=== PATIENT | male | born 1995 | race Caucasian/White ===

== ENCOUNTER 2017-01-20 18:46 | Emergency (ER) | payer OTHER ==
[~2017-01-20] VITALS: Ht 170.1 cm; Wt 77.1 kg
[~2017-01-20 18:46] MED LIST: ADVAIR 250/501 EA INH; ADVAIR 500/501 E1 INH; ADVAIR DISKUS 21 DSK IH; ALBUTEROL0.09 MG/A2 IH; ALBUTEROL2.5 MG/0.5 INH; CIPROFLOXACIN500 MG PO; CLARITIN10 MG; CLARITIN10 MG PO; CORDROL20 MG PO; CYCLOBENZAPRINE10 MG PO; DUONEB 3 MG/3 ML3 M1 INH; FLOVENT DI250 MCG/Ac IH; IBU800 MG PO; KEFLEX500 MG PO; LEVAQUIN500 M1 IV; Lovenox40 MG/0.4 SC; MEDROL DOSEPAK4 MG PO; NORCO 325 MG-51 TAB PO; PREDNICOT20 MG PO; PREDNISONE10 MG PO; PRILOSEC40 MG PO; PROTONIX40 MG PO; PROVENTIL0.09 MG/A1 IH; ROBITUSSIN AC 110 ML PO; SINGULAIR10 MG PO; SOLU-MEDROL40 MG IV; SYMBICORT 10.10.2 M1 IH; SYMBICORT1 AE1 IH; TRAMADOL HCL50 MG PO; ZITHROMAX Z PA250 MG PO; ZYRTEC10 M2 PO; ZYRTEC10 MG PO
[2017-01-20 20:20] LABS: BASO # 0.1 10*3/uL (0.0-0.1); BASO % 0.7 % (0.0-1.0); EOS # 0.7 10*3/uL (0.0-0.4); EOS % 6.5 % (1.0-4.0); HEMATOCRIT 42.7 % (42.0-52.0); HEMOGLOBIN 14.5 g/dl (14.0-18.0); LYMPH # 2.3 10*3/uL (1.3-4.4); LYMPH % 22.4 % (27.0-41.0); MEAN CELL VOLUME 81.6 fl (80.0-94.0); MEAN CORPUSCULAR HGB 27.7 pg (27.0-31.0); MEAN PLATELET VOLUME 9.7 fl (9.6-12.3); MONO # 0.6 10*3/uL (0.1-1.0); MONO % 5.3 % (3.0-9.0); NEUT # 6.7 10*3/uL (2.3-7.9); NEUT % 64.7 % (47.0-73.0); PLATELET COUNT AUTOMATED 255 10*3/uL (130-400); RED BLOOD COUNT 5.23 10*6/uL (4.50-5.90); RED CELL DISTRI WIDTH 12.4 % (0-14.5); WHITE BLOOD COUNT 10.4 10*3/uL (4.8-10.8)
[2017-01-20 20:23] LABS: BILIRUBIN NEGATIVE (NEGATIVE); BLOOD NEGATIVE (NEGATIVE); CLARITY CLEAR (CLEAR); COLOR YELLOW (YELLOW); GLUCOSE NEGATIVE (NEGATIVE); KETONE NEGATIVE (NEGATIVE); LEUKO ESTERASE NEGATIVE (NEGATIVE); NITRITE NEGATIVE (NEGATIVE); PH 7.5 (5.0-9.0); PROTEIN NEGATIVE (NEGATIVE); SPECIFIC GRAVITY 1.015 (1.005-1.030); UROBILINOGEN 0.2 E.U./dl (0.2-1.0)
[2017-01-20 20:34] LABS: URINE REFLEX COMMENT NO (NO)
[2017-01-20 20:36] LABS: ALBUMIN 4.3 gm/dl (3.1-4.5); ALKALINE PHOSPHATASE 108 U/L (45-117); BILIRUBIN, TOTAL 0.8 mg/dl (0.2-1.0); BUN 8 mg/dl (7-24); C-REACTIVE PROTEIN < 0.29 MG/DL (0-0.3); CARBON DIOXIDE 27 mmol/L (21-32); CHLORIDE 106 mmol/L (98-107); EST GLOM FILT AFRICAN AMERICAN > 60 ml/min; GLUCOSE 90 mg/dL (65-99); POTASSIUM 3.9 mmol/L (3.5-5.1); SGOT/AST 18 IU/L (3-35); SGPT/ALT 30 U/L (12-78); SODIUM 140 mmol/L (136-145); TOTAL PROTEIN 7.6 gm/dL (6.4-8.2)
[2017-01-20] MEDS ORDERED: CLINDAMYCIN150 MG PO (20:40)
== END 2017-01-20 22:01 | disposition home or self-care (01) ==
LOC: ED 18:46
PROVIDERS: Student in an Organized Health Care Education/Training Program
DX: K08.89 Other specified disorders of teeth and supporting structures (principal); R10.13 Epigastric pain; J45.909 Unspecified asthma, uncomplicated

== ENCOUNTER 2018-07-28 20:52 | Emergency (ER) | payer OTHER ==
[~2018-07-28] VITALS: Ht 170.1 cm; Wt 81.6 kg
[~2018-07-28 20:52] MED LIST changes: +CLINDAMYCIN150 MG PO; +PREDNISONE20 M1 PO
[2018-07-28] MEDS ORDERED: FLOVENT DISKU250 MCG INH (22:35)
[2018-07-28] MEDS ORDERED: PREDNISONE10 M1 PO (22:35)
[2018-07-28] MEDS ORDERED: ALBUTEROL2.5 MG/0.5 INH (22:48)
[2018-07-28] MEDS ORDERED: PROVENTIL HFA6.7 GM INH (22:48)
[2018-12-31] MEDS ORDERED: PROVENTIL HFA6.7 GM INH ×2 (19:45→19:47)
[2018-12-31] MEDS ORDERED: SEPTDS PO (19:45)
[2018-12-31] MEDS ORDERED: PREDNISONE20 M1 PO (19:45)
== END 2018-07-28 23:34 | disposition home or self-care (01) ==
LOC: ED 20:52
DX: J45.901 Unspecified asthma with (acute) exacerbation (principal); Z76.0 Encounter for issue of repeat prescription; Z79.899 Other long term (current) drug therapy; Z90.49 Acquired absence of other specified parts of digestive tract

== ENCOUNTER 2019-02-03 21:03 | Emergency (ER) | payer OTHER ==
[~2019-02-03] VITALS: Ht 170.1 cm; Wt 77.1 kg
[~2019-02-03 21:03] MED LIST changes: +FLOVENT DISKU250 MCG INH; +PREDNISONE10 M1 PO; +PROVENTIL HFA6.7 GM INH; +SEPTDS PO
[2019-02-03] MEDS ORDERED: ZITHROMAX250 MG PO (22:25)
[2019-02-03] MEDS ORDERED: MEDROL DOSEPAK4 MG PO (22:25)
== END 2019-02-03 22:35 | disposition home or self-care (01) ==
LOC: ED 21:03
DX: J45.909 Unspecified asthma, uncomplicated (principal); Z79.899 Other long term (current) drug therapy; Z79.2 Long term (current) use of antibiotics; Z90.49 Acquired absence of other specified parts of digestive tract